=== PATIENT | female | born 2000 | race Caucasian/White ===

== ENCOUNTER → 2024-06-27 06:12 | Outpatient (REF) | payer OTHER, SELFPAY | LOC: HWCARD 06:12 | PROVIDERS: ATTENDING PHYSICIAN Surgery Plastic and Reconstructive Surgery | DX: Z01.818 Encounter for other preprocedural examination (principal) | CPT/HCPCS: 93005 ==

== ENCOUNTER → 2024-07-05 09:27 | Outpatient (REF) | payer OTHER, SELFPAY ==
[2024-07-05 11:43] LABS: Blood Urea Nitrogen 19 mg/dl (7-17); Calcium 9.5 mg/dl (8.4-10.2); Carbon Dioxide 27 mmol/L (22-30); Chloride 100 mmol/L (98-107); Glucose 90 mg/dl (70-99); Sodium 136 mmol/L (135-145); eGFR > 60.00
== END ==
LOC: REG 09:27
PROVIDERS: ATTENDING PHYSICIAN Surgery Plastic and Reconstructive Surgery
DX: Z01.818 Encounter for other preprocedural examination (principal)
CPT/HCPCS: 36415; 80048; 82565

== ENCOUNTER 2024-07-06 06:04 | Day surgery (SDC) | payer OTHER, SELFPAY ==
[2024-07-06] VITALS (8 sets, daily range): BP systolic 97–125; BP diastolic 64–84; BMI 34.0
[2024-07-06] MEDS: TYLENOL 1000 MG PO (07:09)
[2024-07-06] MEDS: NORMOSOL-R 1000 IV (07:18)
--- NOTE | 2024-07-06 08:23 | W.SUR.PREOP ---
Pre-Operative Surgical Note
-
I have examined this patient prior to the performance of the scheduled procedure.
The patient's condition is unchanged from the time of the current History and
Physical and the patient is able to undergo the scheduled procedure.
[2024-07-06] MEDS: SUBLIMAZE 25 MCG IV (13:28)
--- NOTE | 2024-07-06 13:37 | W.IMMPOSTOP ---
Surgical Immed Post Op Note
-
Primary Surgeon: CORIN Stafford MD
Assisting Surgeon:
Pre-op Diagnosis: macromastia
Post-op Diagnosis: same
Procedure Performed: bilateral breast reduction
Anesthesia Type: General
Specimen / Cultures: Left and right breast tissue
Estimated Blood Loss: 30 cc
Complications: none
Operative Findings: as expected
--- NOTE | 2024-07-06 13:38 | OR.RPT ---
Operative Report
Operative Report
date of surgery: 07/06/2024
Surgeon: CORIN Stafford MD
Preoperative diagnosis: Macromastia, cervicodynia, intertrigo
Postoperative diagnosis: Same
anesthesia: General
EBL: 30 cc
Complications: None
Specimens: Left and right breast tissue for permanent pathology
Indications for procedure: Patient is a 23-year-old female who presented to the office with complaints of large pendulous bilateral breast. This was causing her significant discomfort and she had failed conservative management with supportive bras
physical therapy and training. Prior authorization was obtained for bilateral breast reduction surgery for symptomatic relie Risks of the procedure were reviewed including compromise the nipple areolar complex, scar burden, hematoma, seroma,
infection and delayed wound healing. She understood these risk desired to proceed
Procedure in detail: patient was identified in the preoperative area and the surgical site was confirmed to be the bilateral breast. All questions were answered and consents were confirmed. Bilateral superior medial Infante pattern markings were then
performed. The nipple was placed at the transposition of the inframammary fold. 9 cm limbs were drawn from there. Patient was then taken back to the operating [place] placed supine on the table. Anesthesia was induced and the patient was prepped
and draped in usual sterile fashion using ChloraPrep solution. Timeout for patient safety was performed was confirmed that bilateral SCDs were in place and preoperative antibiotics have been administered. Procedure began first with the injection
of 1% lidocaine dilute with normal saline in the bilateral breast. A 42 mm cookie cutter was then used to michelle the neoareolar complex. Procedure first began on the right side where the markings were incised with a 15 blade, the breast was then
placed under a temporary tourniquet and the pedicle was de-epithelialized with a 10 blade. Tourniquet was released and then the incisions were deepened with Bovie electrocautery. The pedicle was dissected down to the pectoralis fashion. The
inferior pole and lateral aspect of the hypertrophied breast tissue were then removed and weighed. A total of 878 g of tissue were removed from the right side. The wound was inspected for meticulous hemostasis and blocks with quarter percent
Marcaine were then performed in the pectoralis intercostals. The wound was tacked closed using 2-0 Vicryl's at the triple point followed by prabha and the patient and the attention was drawn to the left side. The exact same procedure was
performed the left side. In the incision the new areola complex was marked with a 42 mm cookie cutter and incisions were then made with a 15 blade. Breast was placed under good tourniquet and the pedicle was de-epithelialized. Tourniquet was
released electrocautery was used to dissect out the pedicle down the chest wall. The inferior and lateral aspect of redundant breast tissue was then removed and weighed. A total of 834 g was removed from the left side. Meticulous hemostasis was
ensured and quarter percent Marcaine blocks were performed. Patient was tentatively closed and the patient was sat up and flexed at the waist to evaluate the relative symmetry. It was determined that the patient had achieved her goal of average
sized breast for her body habitus and as such no additional tissue was resected. The patient was returned supine and the bilateral wounds were checked for continued hemostasis. The wounds were then closed with INSORB stapler followed by 3-0
Monocryl as well as a running 4-0 Monocryl subcuticular. At the end the case the bilateral nipple areolar complex had good cap refill without evidence of venous congestion. The wounds were dressed with bacitracin dry gauze and Tegaderm and a
compressive bra was placed. She was extubated taken the PACU for further care. All counts were correct at the end case. This was performed withoutout complication
== END 2024-07-06 15:09 | disposition home or self-care (01) ==
LOC: SDS 06:04
PROVIDERS: ATTENDING PHYSICIAN Surgery Plastic and Reconstructive Surgery
DX: N62 Hypertrophy of breast (principal); M54.2 Cervicalgia; L30.4 Erythema intertrigo
CPT/HCPCS: 19318; 88305